=== PATIENT | female | born 1970 | race Two or more races ===

== ENCOUNTER 2018-08-23 09:01 | Day surgery (SDC) | payer OTHER ==
[2018-08-23 09:38] LABS: ADD MAN DIFF? NO
[2018-08-23 09:47] LABS: BASOPHIL # 0.1 10^3/ul (0.0-0.1); BASOPHILS % 1.1 % (0.0-2.0); EOSINOPHILS # 0.1 10^3/ul (0.0-0.5); EOSINOPHILS % 1.6 % (0.0-7.0); HEMATOCRIT 32.8 % (37.0-47.0); HEMOGLOBIN 10.5 g/dl (12.0-16.0); LYMPHOCYTES # 1.4 10^3/ul (0.8-2.9); LYMPHOCYTES % 24.8 % (15.0-51.0); MEAN CORPUSCULAR HEMOGLOBIN 32.3 pg (29.0-33.0); MEAN CORPUSCULAR VOLUME 100.9 fl (82.0-101.0); MEAN PLATELET VOLUME 9.4 fl (7.4-10.4); MONOCYTE # 0.4 10^3/ul (0.3-0.9); MONOCYTES % 7.8 % (0.0-11.0); NEUTROPHIL # 3.6 10^3/ul (1.6-7.5); NEUTROPHILS % 64.2 % (39.0-77.0); PLATELET COUNT 236 10^3/UL (140-415); RED BLOOD COUNT 3.25 10^6/ul (4.20-5.40); RED CELL DISTRIBUTION WIDTH 16.8 % (11.5-14.5)
[2018-08-23 09:47] LABS: WHITE BLOOD COUNT 5.6 10^3/ul (4.8-10.8)
[2018-08-23] MEDS ORDERED: LIDOCAINE 1% (MDV) 20 ML INJ (09:53)
[2018-08-23] MEDS ORDERED: MIDAZOLAM 1 MG/ML 2 ML INJ (09:53)
[2018-08-23] MEDS ORDERED: HEPARIN 1000 UNITS/NS (A-LINE) 1,000 ML (09:53)
[2018-08-23] MEDS ORDERED: FENTAnyl 50 MCG/ML VIAL (09:53)
[2018-08-23] MEDS ORDERED: IODIXANOL LOCM 100 ML BTL (09:53)
[2018-08-23 10:05] LABS: INR 0.86; PROTIME 11.8 Sec (11.9-14.9); PT RATIO 0.9
[2018-08-23 10:06] LABS: PARTIAL THROMBOPLASTIN TIME 26.9 Sec (23.0-35.0)
[2018-08-23 10:10] LABS: ANION GAP 17 (5-13); CALCIUM 9.2 mg/dl (8.4-10.2); CARBON DIOXIDE 29 mmol/L (21-31); CHLORIDE 93 mmol/L (97-110); Estimated GFR 8 mL/min (>60); GLUCOSE 204 mg/dl (70-220); POTASSIUM 4.8 mmol/L (3.5-5.1); SODIUM 139 mmol/L (135-144)
[2018-08-23 10:18] LABS: BLOOD UREA NITROGEN 41 mg/dl (7-20); CREATININE 5.93 mg/dl (0.44-1.00)
== END 2018-08-23 11:13 | disposition home or self-care (01) ==
LOC: SDS 09:01
DX: T82.590A Other mechanical complication of surgically created arteriovenous fistula, initial encounter (principal); Y84.1 Kidney dialysis as the cause of abnormal reaction of the patient, or of later complication, without mention of misadventure at the time of the procedure; I12.0 Hypertensive chronic kidney disease with stage 5 chronic kidney disease or end stage renal disease; N18.6 End stage renal disease
CPT/HCPCS: 36901; 80048; 82962; 85025; 85610; 85730; 93005